=== PATIENT | male | born 1995 | race Caucasian/White ===

== ENCOUNTER 2018-09-22 16:16 | Emergency (ER) | payer OTHER, SELFPAY ==
[2018-09-22] MEDS ORDERED: NA CHLORIDE 0.9% 500 ML ONE (16:51)
[2018-09-22] MEDS ORDERED: NA CHLORIDE 0.9% 1,000 ML ONE (16:52)
[2018-09-22 16:54] LABS: Urine Blood NEGATIVE (NEG); Urine Glucose NEGATIVE (NEG); Urine Protein NEGATIVE (NEG)
--- NOTE | 2018-09-22 16:58 | RAD REPORT ---
EXAM DESCRIPTION: CT - Head Brain Wo Cont - 09/22/2018 4:46 pm CLINICAL HISTORY: Headache COMPARISON: None. TECHNIQUE: Axial 5 mm thick images of the head were obtained without IV contrast. All CT scans are performed using dose optimization technique as appropriate and may include automated exposure control or mA/KV adjustment according to patient size. FINDINGS: No intracranial hemorrhage, mass, edema or shift of mid-line structures. No acute infarcti on changes seen. No abnormal extra-axial fluid collections. Ventricles are normal. Mastoid air cells and visualized portions of the paranasal sinuses are clear. No acute bony findings. IMPRESSION: Negative non-contrast CT head examination.
--- NOTE | 2018-09-22 17:00 | RAD REPORT ---
EXAM DESCRIPTION: RAD - Chest Single View - 09/22/2018 4:53 pm CLINICAL HISTORY: Cough, fever COMPARISON: None. TECHNIQUE: AP portable chest image was obtained 1652 hours . FINDINGS: Lungs are clear. Heart and vasculature are normal. No measurable pleural effusion and no p neumothorax. No acute bony abnormality seen. No acute aortic findings suspected. IMPRESSION: No acute cardiopulmonary process.
[2018-09-22 17:10] LABS: Absolute Lymphocytes (CBC) 3.2 K/uL (0.7-4.9); Absolute Monocytes 0.7 K/uL (0.1-1.3); Absolute Neutrophil 2.3 K/uL (1.8-8.0); Basophils % 0.7 % (0-1.3); Eosinophils % 0.5 % (0-4.4); Hematocrit 46.8 % (39.6-49.0); Lymphocytes % 51.2 % (15.3-44.8); MPV 9.3 fL (7.6-11.3); Monocytes % 11.4 % (3.3-12.3); RBC Red Blood Cell Count 5.05 M/uL (4.33-5.43)
[2018-09-22 17:21] LABS: Albumin 4.2 g/dL (3.4-5.0); Bilirubin Total 0.7 mg/dL (0.2-1.0); Potassium 4.1 mmol/L (3.5-5.1); Protein, Total 8.5 g/dL (6.4-8.2)
[2018-09-22] MEDS ORDERED: CEFTRIAXONE/SWI 1gm 1 GM/10 ML SYR ONE (18:51)
--- NOTE | 2018-09-22 19:23 | ER ---
Nurse's Notes [facility] Name: Cory Norwood Age: 23 yrs Sex: Male : 1995 Arrival Date: 09/22/2018 Time: 16:17 Bed 5 Private MD: Diagnosis: Headache;Fever, unspecified Presentation: 09/22 16:17 Presenting complaint: Patient states: sent by PCP to R/O meningitis; "last Friday, i hj started having fever, headaches, it feels like the worst headache ever, like a migraine; T max- 101"; reports nausea; reports sweats;. Transition of care: patient was not received from another setting of care. Onset of symptoms was September 22, 2018. Risk Assessment: Do you want to hurt yourself or someone else? Patient reports no desire to harm self or others. Initial Sepsis Screen: Does the patient meet any 2 criteria? No. Patient's initial sepsis screen is negative. Does the patient have a suspected source of infection? No. Patient's initial sepsis screen is negative. Care prior to arrival: None. 16:17 Method Of Arrival: Ambulatory 16:17 Acuity: FERDINAND 3 hj Triage Assessment: 16:17 Headache History: Denies prior headaches. General: Appears in no apparent distress. hj uncomfortable, Behavior is calm, cooperative, appropriate for age. Pain: Pain currently is 5 out of 10 on a pain scale. Pain began 2-3 days ago. Pain: Complains of pain in head Also complains of nausea. Neuro: Level of Consciousness is awake, alert, obeys commands, Oriented to person, place, time, situation, Appropriate for age. Historical: - Allergies: 16:19 No Known Allergies; hj - PMHx: 16:19 None; hj - PSHx: 16:19 None; hj - Immunization history:: Adult Immunizations up to date. - Social history:: Smoking status: Patient/guardian denies using tobacco, Patient/guardian denies using alcohol. - Ebola Screening: : Patient negative for fever greater than or equal to 101.5 degrees Fahrenheit, and additional compatible Ebola Virus Disease symptoms Patient denies exposure to infectious person Patient denies travel to an Ebola-affected area in the 21 days before illness onset. - Family history:: not pertinent. Screenin:17 Abuse screen: Denies threats or abuse. Denies injuries from another. Nutritional hj screening: No deficits noted. Tuberculosis screening: No symptoms or risk factors identified. Fall Risk None identified. Assessment: 16:26 General: Appears in no apparent distress. comfortable, Behavior is calm, cooperative. rv Pain: Complains of pain in head. Neuro: Level of Consciousness is awake, alert, obeys commands, Oriented to person, place, time, situation. Neuro: Reports headache. Cardiovascular: Patient's skin is warm and dry. Respiratory: Airway is patent. GI: No signs and/or symptoms were reported involving the gastrointestinal system. : No signs and/or symptoms were reported regarding the genitourinary system. EENT: No signs and/or symptoms were reported regarding the EENT system. EENT:. Derm: Skin is intact. Musculoskeletal: No signs and/or symptoms reported regarding the musculoskeletal system. 17:00 Reassessment: patient came back from CT scan. awaiting result. started giving IV rv fluids, 1L ns bolus. 19:40 Reassessment: Dr Nguyen talked tot he patient and the family. explained the results rv of diagnostics done and the plan of care. Vital Signs: 16:19 BP 131 / 76; Pulse 71; Resp 18; Temp 98.8(O); Pulse Ox 100% on R/A; Weight 68.04 kg; hj Height 6 ft. 0 in. (182.88 cm); Pain 5/10; 17:00 BP 129 / 59; Pulse 73; Resp 17; Pulse Ox 98% ; rv 17:30 BP 125 / 81; Pulse 67; Resp 16; Pulse Ox 100% ; rv 18:04 BP 118 / 69; Pulse 77; Resp 17; Temp 99.5(O); Pulse Ox 100% ; mh5 18:30 BP 124 / 74; Pulse 83; Resp 17; Temp 99.5(O); Pulse Ox 100% on R/A; aj 19:39 BP 126 / 78; Pulse 77; Resp 17; Temp 99.4; Pulse Ox 100% ; rv 16:19 Body Mass Index 20.34 (68.04 kg, 182.88 cm) ED Course: 16:17 Patient arrived in ED. hj 16:17 Patient has correct armband on for positive identification. Placed in gown. Bed in low hj position. Call light in reach. Side rails up X 1. Adult w/ patient. 16:19 Triage completed. hj 16:20 Arm band placed on right wrist. hj 16:22 Juan M Nguyen MD is Attending Physician. lindsey 16:25 Shayne Voss, ARLEN is Primary Nurse. rv 16:27 Patient has correct armband on for positive identification. Bed in low position. Call rv light in reach. Side rails up X 1. Adult w/ patient. Pulse ox on. NIBP on. 16:[address] via wheelchair. [address] 16:[address] completed. Patient tolerated procedure well. Patient moved back from CT. nj 16:45 Inserted saline lock: 20 gauge in right antecubital area, using aseptic technique. rv Blood collected. 16:45 Initial lab(s) drawn, by me, sent to lab. First set of blood cultures drawn by nd. rv 16:48 CT Head Brain wo Cont In Process Unspecified. EDMS 16:52 Chest Single View XRAY In Process Unspecified. EDMS 17:00 Comprehensive Metabolic Panel Sent. rv 17:00 CBC with Diff Sent. rv 17:00 Procalcitonin Sent. rv 17:00 Urine Culture Sent. rv 17:00 Blood Culture Adult (2) Sent. rv 19:40 No provider procedures requiring assistance completed. IV discontinued, intact, rv bleeding controlled, No redness/swelling at site. Pressure dressing applied. Administered Medications: 16:59 Drug: NS 0.9% 1000 ml Route: IV; Rate: 1 bolus; Site: right antecubital; rv 19:38 Follow up: IV Status: Completed infusion; IV Intake: 1000ml rv 18:38 Drug: Rocephin - (cefTRIAXone) 1 grams Route: IVPB; Infused Over: 30 mins; Site: right ae4 antecubital; 18:50 Follow up: IV Status: Completed infusion ae4 19:50 Not Given (discontinued order): NS 0.9% 1000 ml IV at 125 ml/hr continuous rv Intake: 19:38 IV: 1000ml; Total: 1000ml. rv Outcome: 19:22 Discharge ordered by . lindsey 19:41 Discharged to home ambulatory. rv 19:41 Condition: good 19:41 Discharge instructions given to patient, family, Instructed on discharge instructions, follow up and referral plans. medication usage, Demonstrated understanding of instructions, follow-up care, medications, Prescriptions given X 2. 19:49 Patient left the ED. rv Signatures: Dispatcher [employer] EDMandi Merida RN RN aj Anderson, Corey, MD MD cha Joaquin, Henry, RN RN hj Jordan, Nathan nj Martinez, Maria 5 Kesha Mcghee 2 Shayne Voss RN RN rv Elliott, Andrea, RN RN ae4 Corrections: (The following items were deleted from the chart) 16:21 16:17 Presenting complaint: Patient states: sent by PCP to R/O meningitis; "last Friday, i started having fever, headaches, T max- 101"; reports nausea; reports sweats; 18:30 18:04 BP 118 / 69; Pulse 77bpm; Resp 17bpm; Pulse Ox 100%; rv mh5
--- NOTE | 2018-09-22 19:23 | EDPHYS ---
Physician Documentation [facility] Name: Cory Norwood Age: 23 yrs Sex: Male : 1995 Arrival Date: 09/22/2018 Time: 16:17 Bed 5 Private MD: ED Physician Juan M Nguyen HPI: 09/22 16:49 This 23 yrs old Male presents to ER via Ambulatory with complaints of lindsey Headache, Fever. 16:49 The patient complains of pain to the top of head, forehead, left frontal area, left lindsey side of the back of head, left occipital area and left base of the skull. The patient describes the headache as aching. Onset: The symptoms/episode began/occurred 3 day(s) ago. Associated signs and symptoms: The patient has no apparent associated signs or symptoms. Severity of symptoms: At its worst the pain was mild, in the emergency department the pain is unchanged. Headache History: Denies prior headaches. The symptoms are alleviated by. The patient has not experienced similar symptoms in the past. Historical: - Allergies: 16:19 No Known Allergies; hj - PMHx: 16:19 None; hj - PSHx: 16:19 None; hj - Immunization history:: Adult Immunizations up to date. - Social history:: Smoking status: Patient/guardian denies using tobacco, Patient/guardian denies using alcohol. - Ebola Screening: : Patient negative for fever greater than or equal to 101.5 degrees Fahrenheit, and additional compatible Ebola Virus Disease symptoms Patient denies exposure to infectious person Patient denies travel to an Ebola-affected area in the 21 days before illness onset. - Family history:: not pertinent. ROS: 16:49 Constitutional: Negative for fever, chills, and weight loss, Eyes: Negative for injury, lindsey pain, redness, and discharge, Neck: Negative for injury, pain, and swelling, Cardiovascular: Negative for chest pain, palpitations, and edema, Respiratory: Negative for shortness of breath, cough, wheezing, and pleuritic chest pain, Abdomen/GI: Negative for abdominal pain, nausea, vomiting, diarrhea, and constipation, Back: Negative for injury and pain, : Negative for injury, bleeding, discharge, and swelling, MS/Extremity: Negative for injury and deformity, Skin: Negative for injury, rash, and discoloration, Psych: Negative for depression, anxiety, suicide ideation, homicidal ideation, and hallucinations, Allergy/Immunology: Negative for hives, rash, and allergies, Endocrine: Negative for neck swelling, polydipsia, polyuria, polyphagia, and marked weight changes, Hematologic/Lymphatic: Negative for swollen nodes, abnormal bleeding, and unusual bruising. 16:49 ENT: Positive for sore throat. 16:49 Neuro: Positive for headache. Exam: 16:49 Constitutional: This is a well developed, well nourished patient who is awake, alert, lindsey and in no acute distress. Head/Face: Normocephalic, atraumatic. Eyes: Pupils equal round and reactive to light, extra-ocular motions intact. Lids and lashes normal. Conjunctiva and sclera are non-icteric and not injected. Cornea within normal limits. Periorbital areas with no swelling, redness, or edema. ENT: Nares patent. No nasal discharge, no septal abnormalities noted. Tympanic membranes are normal and external auditory canals are clear. Oropharynx with no redness, swelling, or masses, exudates, or evidence of obstruction, uvula midline. Mucous membranes moist. Neck: Trachea midline, no thyromegaly or masses palpated, and no cervical lymphadenopathy. Supple, full range of motion without nuchal rigidity, or vertebral point tenderness. No Meningismus. Chest/axilla: Normal chest wall appearance and motion. Nontender with no deformity. No lesions are appreciated. Cardiovascular: Regular rate and rhythm with a normal S1 and S2. No gallops, murmurs, or rubs. Normal PMI, no JVD. No pulse deficits. Respiratory: Lungs have equal breath sounds bilaterally, clear to auscultation and percussion. No rales, rhonchi or wheezes noted. No increased work of breathing, no retractions or nasal flaring. Abdomen/GI: Soft, non-tender, with normal bowel sounds. No distension or tympany. No guarding or rebound. No evidence of tenderness throughout. Back: No spinal tenderness. No costovertebral tenderness. Full range of motion. Skin: Warm, dry with normal turgor. Normal color with no rashes, no lesions, and no evidence of cellulitis. MS/ Extremity: Pulses equal, no cyanosis. Neurovascular intact. Full, normal range of motion. Neuro: Awake and alert, GCS 15, oriented to person, place, time, and situation. Cranial nerves II-XII grossly intact. Motor strength 5/5 in all extremities. Sensory grossly intact. Cerebellar exam normal. Normal gait. Psych: Awake, alert, with orientation to person, place and time. Behavior, mood, and affect are within normal limits. 16:54 Neck: ROM/movement: is normal, no acute changes, Meningeal signs: are not present, lindsey Kernig's sign is negative, Brudzinski's sign is negative, nuchal rigidity, is not appreciated. 19:24 Neuro: Orientation: is normal, appropriate for stated age, no acute changes, Mentation: lindsey is normal, appropriate for stated age, no acute changes, Memory: is normal, appropriate for stated age, no acute changes, Cranial nerves: grossly normal, is grossly normal based on the patient's age, no acute changes, Cerebellar function: is grossly normal, is grossly normal based on the patient's age, no acute changes, Motor: is normal, is grossly normal based on the patient's age, no acute changes, moves all fours, Sensation: is normal, no obvious gross deficits, appropriate no acute changes, Gait: not tested. Deep tendon reflexes are 2+ (normal) in the bilateral brachioradialis, bicep, tricep and patellar and Achilles tendons, Babinski testing is normal, seizure activity, is not displayed by the patient. 19:25 Abdomen/GI: Exam negative for Inspection: abdomen appears normal, Bowel sounds: normal, [facility] Palpation: abdomen is soft and non-tender, Liver: no appreciated palpable abnormalities, Hernia: not appreciated. Vital Signs: 16:19 BP 131 / 76; Pulse 71; Resp 18; Temp 98.8(O); Pulse Ox 100% on R/A; Weight 68.04 kg; Height 6 ft. 0 in. (182.88 cm); Pain 5/10; 17:00 BP 129 / 59; Pulse 73; Resp 17; Pulse Ox 98% ; rv 17:30 BP 125 / 81; Pulse 67; Resp 16; Pulse Ox 100% ; rv 18:04 BP 118 / 69; Pulse 77; Resp 17; Temp 99.5(O); Pulse Ox 100% ; mh5 18:30 BP 124 / 74; Pulse 83; Resp 17; Temp 99.5(O); Pulse Ox 100% on R/A; aj 19:39 BP 126 / 78; Pulse 77; Resp 17; Temp 99.4; Pulse Ox 100% ; rv 16:19 Body Mass Index 20.34 (68.04 kg, 182.88 cm) hj MDM: 16:22 Patient medically screened. [facility] 16:55 Data reviewed: vital signs, nurses notes, lab test result(s), radiologic studies, CT lindsey scan, plain films. 19:31 ED course: vince jimenez all results and findings, he agrees no tap now, will follow up [facility] re week. vince family. 09/22 16:29 Order name: CBC with Diff [facility] 09/22 16:29 Order name: Comprehensive Metabolic Panel [facility] 09/22 16:29 Order name: Blood Culture Adult (2) [facility] 09/22 16:29 Order name: Procalcitonin; Complete Time: 17:28 [facility] 09/22 16:29 Order name: Urine Culture [facility] 09/22 16:29 Order name: CBC with Automated Diff [facility] 09/22 16:29 Order name: Comprehensive Metabolic Panel; Complete Time: 17:25 [facility] 09/22 16:38 Order name: Strep; Complete Time: 17:43 [facility] 09/22 16:40 Order name: Urine Dipstick--Ancillary (enter results); Complete Time: 17:16 09/22 17:28 Order name: Acute Hepatitis Panel [facility] 09/22 17:33 Order name: Throat Culture [facility] 09/22 18:22 Order name: Carver Screen Profile; Complete Time: 19:19 [facility] 09/22 19:24 Order name: Manual Differential [facility] 09/22 16:29 Order name: Urine Dipstick-Ancillary (obtain specimen); Complete Time: 17:00 [facility] 09/22 16:29 Order name: CT Head Brain wo Cont; Complete Time: 17:16 [facility] 09/22 16:29 Order name: Chest Single View XRAY; Complete Time: 17:16 [facility] 09/22 16:29 Order name: Lumbar Puncture Setup; Complete Time: 17:00 [facility] 09/22 18:29 Order name: Vital Signs; Complete Time: 18:36 [facility] Administered Medications: 16:59 Drug: NS 0.9% 1000 ml Route: IV; Rate: 1 bolus; Site: right antecubital; rv 19:38 Follow up: IV Status: Completed infusion; IV Intake: 1000ml rv 18:38 Drug: Rocephin - (cefTRIAXone) 1 grams Route: IVPB; Infused Over: 30 mins; Site: right ae4 antecubital; 18:50 Follow up: IV Status: Completed infusion ae4 19:50 Not Given (discontinued order): NS 0.9% 1000 ml IV at 125 ml/hr continuous rv Disposition: 09/22/18 19:22 Discharged to Home. Impression: Headache, Fever, unspecified. - Condition is Stable. - Discharge Instructions: Fever, Adult, General Headache Without Cause, General Headache Without Cause, [id number]. - Prescriptions for Ibuprofen 600 mg Oral Tablet - take 1 tablet by ORAL route every 8 hours As needed take with food; 21 tablet. Zofran 4 mg Oral Tablet - take 1 tablet by ORAL route every 12 hours As needed; 14 tablet. - Medication Reconciliation Form, Thank You Letter, Antibiotic Education, Prescription Opioid Use form. - Follow up: Private Physician; When: 2 - 3 days; Reason: Recheck today's complaints, Continuance of care, Re-evaluation by your physician. - Problem is new. - Symptoms have improved. Signatures: Dispatcher [employer] EDMS Juan M Nguyen MD MD cha Joaquin, Henry, RN RN Shayne Voss RN RN Moe Kwong RN RN ae4 Corrections: (The following items were deleted from the chart) 19:49 19:22 09/22/2018 19:22 Discharged to Home. Impression: Headache; Fever, unspecified. rv Condition is Stable. Discharge Instructions: Fever, Adult, General Headache Without Cause, General Headache Without Cause, [id number]. Prescriptions for Ibuprofen 600 mg Oral Tablet - take 1 tablet by ORAL route every 8 hours As needed take with food; 21 tablet, Zofran 4 mg Oral Tablet - take 1 tablet by ORAL route every 12 hours As needed; 14 tablet. and Forms are Medication Reconciliation Form, Thank You Letter, Antibiotic Education, Prescription Opioid Use. Follow up: Private Physician; When: 2 - 3 days; Reason: Recheck today's complaints, Continuance of care, Re-evaluation by your physician. Problem is new. Symptoms have improved. lindsey
[2018-09-22 19:24] LABS: Blood Morphology Comment NOT SEEN (NOT SEEN); Platelet Estimate DECR
[2018-09-27 07:12] LABS: HBsAG Nonreactive (Nonreactive); Hepatitis A IgM Antibody Nonreactive
== END 2018-09-22 19:49 | disposition home or self-care (01) ==
LOC: ER 16:16
DX: R51 Headache (principal); R50.9 Fever, unspecified
CPT/HCPCS: 36415; 70450; 71045; 80053; 80074; 81003; 84145; 85025; 86308; 87040; 87070; 87081; 87086; 87088; 96361; 96374; 99284; J0696; J7030